=== PATIENT | female | born 1975 | race Caucasian/White ===

== ENCOUNTER 2017-06-15 05:15 | Observation (INO) | payer MEDICAID ==
[~2017-06-15] VITALS: Ht 154.9 cm; Wt 98.9 kg
[2017-06-15] MEDS ORDERED: RINGERS SOLUTION,LACTATED 1,000 ML IV ONE (06:45)
[2017-06-15] MEDS ORDERED: ACETAMINOPHEN 325 MG TABLET PO ONE (06:45)
[2017-06-15] MEDS ORDERED: ONDANSETRON HCL 4 MG/2 ML VIAL IVP ONE (06:45)
[2017-06-15] MEDS ORDERED: RINGERS SOLUTION,LACTATED 1,000 ML IV SCH (06:45)
[2017-06-15 08:01] VITALS: BP 112/58
[2017-06-15] MEDS ORDERED: BETAMETHASONE SOLUSPAN 6 MG/ML 5 ML VIAL IM SCH (11:15)
== END 2017-06-15 16:20 | disposition home or self-care (01) ==
LOC: 4S 05:15
PROVIDERS: ADMIT Obstetrics & Gynecology; ATTEND Obstetrics & Gynecology
DX: O21.2 Late vomiting of pregnancy (principal); O09.523 Supervision of elderly multigravida, third trimester; O26.893 Other specified pregnancy related conditions, third trimester; R10.9 Unspecified abdominal pain; Z3A.33 33 weeks gestation of pregnancy
CPT/HCPCS: 36415; 59025; 76811; 80307 ×8; 82731; 87086; 89060; 96360; G0378; J7120